=== PATIENT | female | born 1985 | race Caucasian/White ===

== ENCOUNTER → 2019-10-31 09:36 | Outpatient (BNVA) | payer MEDICAID, SELFPAY | PROVIDERS: Family Provider Nurse Practitioner Family; PCP Nurse Practitioner Family; Visit Provider Internal Medicine Rheumatology | DX: R76.8 Other specified abnormal immunological findings in serum (principal); M19.90 Unspecified osteoarthritis, unspecified site; Z79.899 Other long term (current) drug therapy; Z11.59 Encounter for screening for other viral diseases; Z11.1 Encounter for screening for respiratory tuberculosis; Z72.89 Other problems related to lifestyle; Z79.1 Long term (current) use of non-steroidal anti-inflammatories (NSAID) | CPT/HCPCS: 36415; 80076; 82306; 82565; 84550; 85651; 86140; 86160; 86480; 86704; 86803; 86812; 87340; 99204 ==

== ENCOUNTER → 2019-10-31 10:30 | Outpatient (BNVA) | payer MEDICAID, SELFPAY | PROVIDERS: Family Provider Nurse Practitioner Family; PCP Nurse Practitioner Family; Visit Provider Internal Medicine Rheumatology | DX: R76.8 Other specified abnormal immunological findings in serum (principal); M19.90 Unspecified osteoarthritis, unspecified site; Z79.899 Other long term (current) drug therapy; Z11.59 Encounter for screening for other viral diseases | CPT/HCPCS: 85025 ==

== ENCOUNTER → 2020-01-02 09:44 | Outpatient (BNVA) | payer MEDICAID, SELFPAY | PROVIDERS: Family Provider Nurse Practitioner Family; PCP Nurse Practitioner Family; Visit Provider Internal Medicine Rheumatology | DX: R76.8 Other specified abnormal immunological findings in serum (principal); Z11.59 Encounter for screening for other viral diseases; Z79.899 Other long term (current) drug therapy | CPT/HCPCS: 80076; 81001; 82565; 82570; 84156; 85025; 85651; 86060; 86140; 86803 ==

== ENCOUNTER 2020-01-04 11:27 | Outpatient (CLI) | payer MEDICAID, SELFPAY ==
--- NOTE | 2020-01-04 11:50 | XR_ITS ---
WS: [id number] XR foot RT min 3V* [id number] REASON FOR EXAM: inflammatory arthritis FINDINGS: Hallux valgus changes of the first metatarsal phalangeal junction. The phalanges, metatarsals, tarsals were normal. A small calcaneal spur is seen. XR/XR foot RT min 3V* [id number] IMPRESSION: Small calcaneal spur Mild hallux valgus changes
--- NOTE | 2020-01-04 11:50 | XR_ITS ---
WS: [id number] XR foot LT min 3V* [id number] REASON FOR EXAM: inflammatory arthritis FINDINGS: Metatarsal adductus changes of the first through fourth metatarsals. The phalanges, metatarsals and tarsals show no destructive changes no unusual swelling of the joints are seen. A calcaneal spur is seen. XR/XR foot LT min 3V* [id number] IMPRESSION: Metatarsal adductus changes. Calcaneal spur.
--- NOTE | 2020-01-04 11:50 | XR_ITS ---
WS: [id number] XR chest 2V* [id number] REASON FOR EXAM: inflammatory arthritis FINDINGS: The heart and mediastinal interfaces are normal. The peripheral lungs are clear there is no pneumonia, pleural effusion, pulmonary edema, pneumothorax , or fibrosing changes. The hilum and apices are normal. No osseous abnormalities. XR/XR chest 2V* [id number] IMPRESSION: Negative chest for active pathology.
--- NOTE | 2020-01-04 11:50 | XR_ITS ---
WS: [id number] XR hand RT min 3V* [id number] REASON FOR EXAM: inflammatory arthritis FINDINGS: No unusual soft tissue swelling. The phalanges, metacarpals, carpals are normal. No lytic changes are seen throughout the bony structu res. XR/XR hand RT min 3V* [id number] IMPRESSION: Negative right hand
--- NOTE | 2020-01-04 11:50 | XR_ITS ---
WS: [id number] XR hand LT min 3V* [id number] REASON FOR EXAM: inflammatory arthritis FINDINGS: The phalanges, metacarpals, and carpals are normal. There does appear to be soft tissue swe lling of the hand. There is no swelling or destructive changes in the joint spaces. XR/XR hand LT min 3V* [id number] IMPRESSION: Soft tissue swelling of the hand No destructive changes
== END 2020-01-04 11:28 | disposition home or self-care (01) ==
LOC: RAD 11:30
PROVIDERS: PCP Nurse Practitioner Family; Visit Provider Internal Medicine Rheumatology
DX: M19.90 Unspecified osteoarthritis, unspecified site (principal); M77.31 Calcaneal spur, right foot; M20.11 Hallux valgus (acquired), right foot; M77.32 Calcaneal spur, left foot
CPT/HCPCS: 71046; 73130; 73630

== ENCOUNTER → 2020-03-12 15:03 | Outpatient (BNVA) | payer MEDICAID, SELFPAY | PROVIDERS: PCP Nurse Practitioner Family; Visit Provider Internal Medicine Rheumatology | DX: M35.9 Systemic involvement of connective tissue, unspecified (principal); M19.90 Unspecified osteoarthritis, unspecified site; R76.8 Other specified abnormal immunological findings in serum; G56.20 Lesion of ulnar nerve, unspecified upper limb; F17.210 Nicotine dependence, cigarettes, uncomplicated; Z79.1 Long term (current) use of non-steroidal anti-inflammatories (NSAID); Z79.899 Other long term (current) drug therapy | CPT/HCPCS: 99214 ==

== ENCOUNTER → 2020-05-20 09:21 | Outpatient (BNVA) | payer MEDICAID, SELFPAY | PROVIDERS: PCP Nurse Practitioner Family; Visit Provider Internal Medicine Rheumatology | DX: Z79.899 Other long term (current) drug therapy (principal) | CPT/HCPCS: 80076; 82565; 85025; 85651; 86140 ==

== ENCOUNTER → 2020-06-19 09:24 | Outpatient (BNVA) | payer MEDICAID, SELFPAY | PROVIDERS: PCP Nurse Practitioner Family; Visit Provider Internal Medicine Rheumatology | DX: M19.90 Unspecified osteoarthritis, unspecified site (principal); R76.8 Other specified abnormal immunological findings in serum; M35.9 Systemic involvement of connective tissue, unspecified; G56.20 Lesion of ulnar nerve, unspecified upper limb; F17.210 Nicotine dependence, cigarettes, uncomplicated; Z79.899 Other long term (current) drug therapy | CPT/HCPCS: 99214; 99442 ==

== ENCOUNTER → 2020-09-23 00:01 | Outpatient (BNVA) | payer MEDICAID, SELFPAY | PROVIDERS: PCP Nurse Practitioner Family; Visit Provider Obstetrics & Gynecology | DX: B37.3 Candidiasis of vulva and vagina (principal); R30.0 Dysuria; L29.2 Pruritus vulvae | CPT/HCPCS: 81003; 87077; 87086; 87184 ==

== ENCOUNTER → 2020-10-08 15:28 | Outpatient (BNVA) | payer MEDICAID, SELFPAY | PROVIDERS: PCP Nurse Practitioner Family; Visit Provider Obstetrics & Gynecology | DX: L29.2 Pruritus vulvae (principal) | CPT/HCPCS: 88305 ==

== ENCOUNTER → 2020-12-16 10:56 | Outpatient (BNVA) | payer MEDICAID, SELFPAY | PROVIDERS: PCP Nurse Practitioner Family; Referring Provider Nurse Practitioner Family; Visit Provider Nurse Practitioner Family | DX: N32.81 Overactive bladder (principal); N39.0 Urinary tract infection, site not specified | CPT/HCPCS: 81003; 87086 ==

== ENCOUNTER → 2021-01-08 09:21 | Outpatient (BNVA) | payer MEDICAID, SELFPAY | PROVIDERS: PCP Nurse Practitioner Family; Visit Provider Internal Medicine Rheumatology | DX: M19.90 Unspecified osteoarthritis, unspecified site (principal); Z79.899 Other long term (current) drug therapy | CPT/HCPCS: 36415; 80076; 82565; 85025; 86140 ==

== ENCOUNTER → 2021-05-29 14:34 | Outpatient (BNVA) | payer MEDICAID, SELFPAY | PROVIDERS: PCP Nurse Practitioner Family; Visit Provider Nurse Practitioner Family | DX: N39.0 Urinary tract infection, site not specified (principal) | CPT/HCPCS: 81003 ==

== ENCOUNTER → 2021-10-22 14:35 | Outpatient (BNVA) | payer MEDICAID, SELFPAY | PROVIDERS: PCP Nurse Practitioner Family; Visit Provider Nurse Practitioner Family | DX: N39.0 Urinary tract infection, site not specified (principal); N39.41 Urge incontinence | CPT/HCPCS: 81003 ==

== ENCOUNTER → 2021-11-05 09:53 | Outpatient (BNVA) | payer MEDICAID, SELFPAY | PROVIDERS: PCP Nurse Practitioner Family; Visit Provider Internal Medicine Rheumatology | DX: M19.90 Unspecified osteoarthritis, unspecified site (principal); Z79.899 Other long term (current) drug therapy | CPT/HCPCS: 80076; 82565; 85025; 86140 ==

== ENCOUNTER → 2021-11-26 14:12 | Outpatient (BNVA) | payer MEDICAID, SELFPAY | PROVIDERS: PCP Nurse Practitioner Family; Visit Provider Internal Medicine Rheumatology | DX: R76.8 Other specified abnormal immunological findings in serum (principal); G56.23 Lesion of ulnar nerve, bilateral upper limbs; Z79.1 Long term (current) use of non-steroidal anti-inflammatories (NSAID); M19.90 Unspecified osteoarthritis, unspecified site; M35.9 Systemic involvement of connective tissue, unspecified; Z79.899 Other long term (current) drug therapy | CPT/HCPCS: 99214 ==

== ENCOUNTER 2021-12-25 10:51 | Emergency (ER) | payer MEDICAID, SELFPAY ==
[2021-12-25 10:54] VITALS: BP 98/66; PULSE 75; RESP 16; TEMP 36.4; O2SAT 100; BMI 39.3
[2021-12-25 11:02] VITALS: BP 98/66; PULSE 82; RESP 16; O2SAT 99
--- NOTE | 2021-12-25 11:21 | ED_ITS ---
HPI - Abdominal Pain General: Chief Complaint: Abdominal Pain Stated Complaint: vomiting blood Time Seen by Provider: 12/25/21 10:58 History of Present Illness: Patient comes in with vomiting and diarrhea. States she started vomiting this morning and shortly after the vomiting she st arted having some diarrhea. States that after 2 or 3 episodes of vomiting she saw small flecks of blood. Denies abdominal pain, fever. But does endorse some chills. Associated Symptoms: Reports diarrhea, nausea and vomiting; Denies dysuria and fever(s) Review of Systems Const: Denies: fever(s) or body aches Eyes: Denies: change in vision or blurry vision ENMT: Denies: throat pain or odynophagia Card: Denies: chest pain or palpitations Resp: Denies: dyspnea or productive cough GI: Reports: nausea, vomiting and diarrhea; Denies: abdominal pain : Denies: flank pain or dysuria Musc: Denies: neck pain or back pain Skin/Breast: Denies: rash or pruritus Neuro: Denies: headache(s) or numbness in extremities Psych: Denies: anxiety or change in appetite Endo: Denies: polyuria or excessive sweating PFSH ED 2 PFSH: Medical History (Updated 12/25/21 @ 12:55 by Yamil Shelley MD) Anxiety and depression Has had symptoms on and off since 2010 however has been on medication since 2018 being managed by her primary care provider. She does not have a psychiatrist or therapist Asthma Diagnosed in 2016 and is controlled with medication use managed by her primary care provider. She does not see a accident examiner GERD (gastroesophageal reflux disease) 19 but does not know results. Inflammatory arthritis No pertinent past medical history Denies diabetes, seizures, hypertension, DVT/PE PMD: Christin Dorsey, [facility] Overactive bladder Being managed on medications by her primary care provider Recurrent UTI Urgency incontinence Surgical History H/O ovarian cystectomy 2004---laparoscopic procedure performed by Dr. 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 History of tubal ligation 2009-laparoscopic interval sterilization Family History Father Hyperlipidemia Hypertension Mother Hyperlipidemia Hypertension Social History Smoking and tobacco status: never smoked Alcohol intake: never Marital status: Current occupational status: unemployed History of recent travel: No Physical Exam Const: COMMON NORMALS: no acute distress, patient oriented x3, healthy appearing and alert HENMT: COMMON NORMALS: normocephalic and atraumatic HEAD & SCALP: normocephalic and atraumatic Eye: COMMON NORMALS: Equal, round and reactive pupils present and EOMs intact bilaterally PUPIL: Yes Equal, round and reactive pupils present Neck/C-Spine: COMMON NORMALS: full ROM and supple Resp: COMMON NORMALS: normal respiratory effort, No retractions and No use of accessory muscles Cardio: COMMON NORMALS: regular rate and regular rhythm RATE: regular rate RHYTHM: regular rhythm GI: COMMON NORMALS: Normal to inspection, nondistended, normoactive bowel sounds present, Soft to palpation and non-tender PALPATION: Yes Soft to palpation Back/Pelvis: COMMON NORMALS: thoracic and lumbar spine normal to inspection and no thoracic nor lumbar tenderness Extremity: COMMON NORMALS: normal to inspection and full ROM Neuro: COMMON NORMALS: patient oriented x3 SENSORIUM/ORIENTATION: Yes alert Psych: COMMON NORMALS: mental status grossly normal and cooperative Skin: COMMON NORMALS: no rashes or lesions noted and no wounds GENERAL SKIN EXAM: no rashes or lesions noted Course Vital Signs: Vital signs: Vital Signs Temperature 97.6 F 12/25/21 10:54 Pulse Rate 82 12/25/21 11:02 Respiratory Rate 16 12/25/21 11:02 Blood Pressure 98/66 12/25/21 11:02 Pulse Oximetry 99 12/25/21 11:02 MDM - Abdominal Pain Medical Decision Making Patient comes in with vomiting and diarrhea. States she started vomiting this morning and shortly after the vomiting she started having some diarrhea. States that after 2 or 3 episodes of vomiting she saw small flecks of blood. Denies abdominal pain, fever. But does endorse some chills. On physical exam her abdomen is soft nontender. Will check labs, give IV fluids, treat nausea with IV Zofran, and reassess. On reassessment I talked to the patient about the test results. We will continue nausea medication, and discharge precautions return for worsening or changing symptoms. Lab Data : 12/25/21 11:32 12/25/21 11:32 Labs/Radiology: Laboratory Results WBC 28.8 10^3/uL (4.0-10.0) H 12/25/21 11:32 RBC 5.40 10^6/uL (4.1-5.3) H 12/25/21 11:32 Hgb 13.5 g/dL (11.5-15.3) 12/25/21 11:32 Hct 44.3 % (37.0-47.0) 12/25/21 11:32 MCV 82.0 fl (81-99) 12/25/21 11:32 MCH 25.0 pg (28.0-34.0) L 12/25/21 11:32 MCHC 30.5 g/dL (30.0-36.0) 12/25/21 11:32 RDW 14.5 % (12.1-15.1) 12/25/21 11:32 Plt Count 478 10^3/cmm (130-400) H 12/25/21 11:32 MPV 10.2 fL (7.4-10.4) 12/25/21 11:32 Neut % (Auto) 85.8 % 12/25/21 11:32 Lymph % (Auto) 4.6 % 12/25/21 11:32 Banner % (Auto) 8.3 % 12/25/21 11:32 Eos % (Auto) 0.4 % 12/25/21 11:32 Baso % (Auto) 0.3 % 12/25/21 11:32 Neut # (Auto) 24.69 10^3/uL (1.8-7.7) H 12/25/21 11:32 Lymph # (Auto) 1.3 10^3/uL (0.8-4.8) 12/25/21 11:32 Banner # (Auto) 2.4 10^3/uL (0.2-0.9) H 12/25/21 11:32 Eos # (Auto) 0.1 10^3/uL (0.0-0.8) 12/25/21 11:32 Baso # (Auto) 0.1 10^3/uL (0.0-0.1) 12/25/21 11:32 Nucleated RBC % (auto) 0 % 12/25/21 11:32 Nucleated RBCs # 0.0 /100WBC 12/25/21 11:32 Sodium 139 mmol/L (136-145) 12/25/21 11:32 Potassium 3.9 mmol/L (3.5-5.1) 12/25/21 11:32 Chloride 102 mmol/L (98-107) 12/25/21 11:32 Carbon Dioxide 23 mmol/L (22-29) 12/25/21 11:32 Anion Gap 17.9 (5-19) 12/25/21 11:32 BUN 10 mg/dL (6-20) 12/25/21 11:32 Creatinine 0.9 mg/dL (0.5-0.9) 12/25/21 11:32 GFR Calculation 70.5 mL/min (90-130) L 12/25/21 11:32 Glucose 158 mg/dL (65-115) H 12/25/21 11:32 Calculated Osmolality 290 mOsm/kg (285-295) 12/25/21 11:32 Calcium 9.7 mg/dL (8.5-10.5) 12/25/21 11:32 Total Bilirubin 0.3 mg/dL (0.15-1.2) 12/25/21 11:32 AST 18 U/L (0-32) 12/25/21 11:32 ALT 17 U/L (0-33) 12/25/21 11:32 Alkaline Phosphatase 84 IU/L (35-105) 12/25/21 11:32 Total Protein 8.8 g/dL (6.6-8.7) H 12/25/21 11:32 Albumin 5.1 g/dL (3.5-5.2) 12/25/21 11:32 Globulin 3.7 g/dL (1.3-4.6) 12/25/21 11:32 Lipase 23 U/L (13-60) 12/25/21 11:32 Discharge Plan Discharge Patient Disposition: Home Clinical Impression: Nausea, vomiting and diarrhea Condition: Stable Prescriptions: New ondansetron 4 mg tablet,disintegrating 4 mg PO Q8H PRN (Reason: nausea and vomiting) 5 Days Qty: 20 0RF No Action cetirizine [Zyrtec] 10 mg tablet 10 mg PO DAILY 0RF fluticasone propionate [Flonase Allergy Relief] 50 mcg/actuation spray,suspension 2 spray INTRANASAL DAILY PRN (Reason: Allergic Symptoms) 0RF pantoprazole 40 mg tablet,delayed release (DR/EC) 40 mg PO DAILY 0RF fluoxetine 20 mg capsule 40 mg PO DAILY 0RF oxybutynin chloride 5 mg tablet 15 mg PO DAILY 0RF montelukast [Singulair] 10 mg tablet 10 mg PO DAILY 0RF buspirone 5 mg tablet 5 mg PO TID 0RF albuterol sulfate [Proventil HFA] 90 mcg/actuation HFA aerosol inhaler 2 puff inhalation Q6H PRN (Reason: Shortness Of Breath) 0RF gabapentin 300 mg capsule 300 mg PO TID Qty: 90 3RF hydroxychloroquine 200 mg tablet 200 mg PO BID Qty: 60 3RF prednisone 5 mg tablet See Rx Instructions PO DAILY Qty: 90 1RF Rx Instructions: take 2 tabs daily for 10days then stay on 1.5 tabs daily PO daily; nitrofurantoin monohyd/m-cryst 100 mg capsule 100 mg PO BID 0RF bupropion HCl 150 mg Tablet Sustained-Release 12 Hr 150 mg PO BID 0RF Discharge Orders: Discharge ED (Routine); Ordered 12/25/21 Ordered By: Yamil Shelley Referrals: Christin Dosrey [Primary Care Provider] - Coding Level of Care Code ED Ed Case Manager for Chg Fwd Exam Comprehensive
[2021-12-25 11:40] LABS: Basophils # 0.1 10^3/uL (0.0-0.1); Basophils % 0.3 %; Eosinophils # 0.1 10^3/uL (0.0-0.8); Eosinophils % 0.4 %; Hematocrit 44.3 % (37.0-47.0); Hemoglobin 13.5 g/dL (11.5-15.3); Lymphocytes # 1.3 10^3/uL (0.8-4.8); Lymphocytes % 4.6 %; Mean Corpuscular HGB Conc 30.5 g/dL (30.0-36.0); Mean Platelet Volume 10.2 fL (7.4-10.4); Monocytes # 2.4 10^3/uL (0.2-0.9); Monocytes % 8.3 %; Neutrophils # 24.69 10^3/uL (1.8-7.7); Neutrophils % 85.8 %; Nucleated Red Blood Cells % 0 %; Platelet Count 478 10^3/cmm (130-400); Red Cell Distribution Width 14.5 % (12.1-15.1); White Blood Count 28.8 10^3/uL (4.0-10.0)
[2021-12-25] MEDS: sodium chloride 0.9% 1,000 ML 999 ML IV (11:41)
[2021-12-25] MEDS: ondansetron 2 mg/ML SDV 2 mL 4 MG IVP (11:44)
[2021-12-25 12:12] LABS: Alanine Aminotransferase 17 U/L (0-33); Albumin Level 5.1 g/dL (3.5-5.2); Alkaline Phosphatase 84 IU/L (35-105); Aspartate Amino Transferase 18 U/L (0-32); Blood Urea Nitrogen 10 mg/dL (6-20); Calcium 9.7 mg/dL (8.5-10.5); Carbon Dioxide 23 mmol/L (22-29); Chloride 102 mmol/L (98-107); Globulin 3.7 g/dL (1.3-4.6); Glomerular Filtration Rate 70.5 mL/min (90-130); Glucose 158 mg/dL (65-115); Lipase 23 U/L (13-60); Osmolality Calculated 290 mOsm/kg (285-295); Sodium 139 mmol/L (136-145); Total Bilirubin 0.3 mg/dL (0.15-1.2); Total Protein 8.8 g/dL (6.6-8.7)
[2021-12-25 12:15] LABS: Anion Gap 17.9 (5-19); Potassium 3.9 mmol/L (3.5-5.1)
[2021-12-25 13:12] VITALS: BP 98/66; PULSE 82; RESP 16; O2SAT 99
== END 2021-12-25 13:14 | disposition home or self-care (01) ==
PROVIDERS: Emergency Provider Emergency Medicine; PCP Nurse Practitioner Family
DX: R11.2 Nausea with vomiting, unspecified (principal); R19.7 Diarrhea, unspecified
CPT/HCPCS: 80053; 83690; 85025; 96361; 96374; 99283; J2405; J7030

== ENCOUNTER 2022-02-04 03:53 | Emergency (ER) | payer MEDICAID, SELFPAY ==
[2022-02-04 03:54] VITALS: BP 129/79; PULSE 80; RESP 16; TEMP 36.5; O2SAT 98; BMI 37.1
[2022-02-04] MEDS: sodium chloride 0.9% 1,000 ML 999 ML IV (04:10)
[2022-02-04] MEDS: ondansetron 2 mg/ML SDV 2 mL 4 MG IVP (04:15)
--- NOTE | 2022-02-04 04:21 | W.ED.NAVMDI ---
HPI - Nausea/Vomiting/Diarrhea General: Chief complaint: Nausea/Vomiting/Diarrhea Stated complaint: N/V Time Seen by Provider: 02/04/22 03:53 Source: patient and EMS Mode of arrival: EMS Limitations: no limitations History of Present Illness: 36-year-old female who states that she woke up roughly 2 hours ago with vomiting along with some diarrhea. States had multiple episodes of vomiting she has had some slight abdominal cramping denies any abdominal pain patient denies any fever she denies any worsening improving factors. Associated nausea: Yes Associated symtoms: Reports nausea; Denies chest pain, dysuria or headache(s) Review of Systems Const: Denies: fever(s), chills, body aches or change in appetite Eyes: Denies: blurry vision or eye discomfort ENMT: Denies: throat pain or dental pain Card: Denies: chest pain Resp: Denies: dyspnea GI: Reports: nausea, vomiting and diarrhea : Denies: dysuria Musc: Denies: neck pain or back pain Skin/Breast: Denies: rash Neuro: Denies: headache(s) Psych: Denies: depression Elton/Lymph: Denies: easy bruising All/Imm: Denies: urticaria PFSH ED PFSH: Medical History (Updated 02/04/22 @ 05:03 by Ela Hernandez MD) Anxiety and depression Has had symptoms on and off since 2010 however has been on medication since 2018 being managed by her primary care provider. She does not have a psychiatrist or therapist Asthma Diagnosed in 2016 and is controlled with medication use managed by her primary care provider. She does not see a executive director of marketing GERD (gastroesophageal reflux disease) 19 but does not know results. Inflammatory arthritis No pertinent past medical history Denies diabetes, seizures, hypertension, DVT/PE PMD: Christin Dorsey, [facility] Overactive bladder Being managed on medications by her primary care provider Recurrent UTI Urgency incontinence Surgical History H/O ovarian cystectomy 2004---laparoscopic procedure performed by Dr. Mcfarland at 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 History of tubal ligation 2009-laparoscopic interval sterilization Family History Father Hyperlipidemia Hypertension Mother Hyperlipidemia Hypertension Social History Smoking and tobacco status: never smoked Alcohol intake: never Marital status: Current occupational status: unemployed History of recent travel: No Physical Exam Const: COMMON NORMALS: no acute distress, patient oriented x3 and healthy appearing HENMT: COMMON NORMALS: normocephalic and atraumatic HEAD & SCALP: normocephalic and atraumatic Eye: COMMON NORMALS: Equal, round and reactive pupils present and EOMs intact bilaterally PUPIL: Yes Equal, round and reactive pupils present Neck/C-Spine: COMMON NORMALS: full ROM and supple Chest: COMMONS NORMALS: normal inspection of the chest and normal palpation of entire chest wall Resp: COMMON NORMALS: normal respiratory effort, No retractions, No use of accessory muscles and clear to auscultation bilaterally AUSCULTATION: clear to auscultation bilaterally Cardio: COMMON NORMALS: regular rate, regular rhythm and No murmurs present (Cardio) RATE: regular rate RHYTHM: regular rhythm GI: COMMON NORMALS: Normal to inspection, nondistended, normoactive bowel sounds present, Soft to palpation, non-tender and no masses PALPATION: Yes Soft to palpation Extremity: COMMON NORMALS: normal to inspection and full ROM Neuro: COMMON NORMALS: patient oriented x3, moves all extremities and no focal motor deficits Psych: COMMON NORMALS: mental status grossly normal, Normal thought process present and cooperative THOUGHT PROCESS: Normal thought process present Skin: COMMON NORMALS: no rashes or lesions noted and no wounds GENERAL SKIN EXAM: no rashes or lesions noted Course Vital Signs: Vital signs: Vital Signs Temperature 97.7 F 02/04/22 03:54 Pulse Rate 72 02/04/22 04:59 Respiratory Rate 16 02/04/22 04:59 Blood Pressure 121/61 02/04/22 04:59 Pulse Oximetry 97 02/04/22 04:59 MDM - Nausea/Vomiting/Diarrhea Medical Decision Making Patient presents here with vomiting along with diarrhea that is likely viral in nature. Patient's blood work here along with abdominal exam is benign patient is stable for discharge we will prescribe Zofran she is to follow-up with PCP and return if worsening. Lab Data : 02/04/22 04:15 02/04/22 04:15 Laboratory Results WBC 12.6 10^3/uL (4.0-10.0) H 02/04/22 04:15 RBC 4.26 10^6/uL (4.1-5.3) 02/04/22 04:15 Hgb 10.2 g/dL (11.5-15.3) L 02/04/22 04:15 Hct 33.1 % (37.0-47.0) L 02/04/22 04:15 MCV 77.7 fl (81-99) L 02/04/22 04:15 MCH 23.9 pg (28.0-34.0) L 02/04/22 04:15 MCHC 30.8 g/dL (30.0-36.0) 02/04/22 04:15 RDW 15.2 % (12.1-15.1) H 02/04/22 04:15 Plt Count 354 10^3/cmm (130-400) 02/04/22 04:15 MPV 10.9 fL (7.4-10.4) H 02/04/22 04:15 Neut % (Auto) 72.3 % 02/04/22 04:15 Lymph % (Auto) 18.3 % 02/04/22 04:15 Kendall % (Auto) 7.8 % 02/04/22 04:15 Eos % (Auto) 0.7 % 02/04/22 04:15 Baso % (Auto) 0.5 % 02/04/22 04:15 Neut # (Auto) 9.13 10^3/uL (1.8-7.7) H 02/04/22 04:15 Lymph # (Auto) 2.3 10^3/uL (0.8-4.8) 02/04/22 04:15 Kendall # (Auto) 1.0 10^3/uL (0.2-0.9) H 02/04/22 04:15 Eos # (Auto) 0.1 10^3/uL (0.0-0.8) 02/04/22 04:15 Baso # (Auto) 0.1 10^3/uL (0.0-0.1) 02/04/22 04:15 Nucleated RBC % (auto) 0 % 02/04/22 04:15 Nucleated RBCs # 0.0 /100WBC 02/04/22 04:15 Hypochromasia 3+ H 02/04/22 04:15 Sodium 138 mmol/L (136-145) 02/04/22 04:15 Potassium 4.3 mmol/L (3.5-5.1) 02/04/22 04:15 Chloride 102 mmol/L (98-107) 02/04/22 04:15 Carbon Dioxide 26 mmol/L (22-29) 02/04/22 04:15 Anion Gap 14.3 (5-19) 02/04/22 04:15 BUN 9 mg/dL (6-20) 02/04/22 04:15 Creatinine 0.8 mg/dL (0.5-0.9) 02/04/22 04:15 GFR Calculation 80.7 mL/min (90-130) L 02/04/22 04:15 Glucose 129 mg/dL (65-115) H 02/04/22 04:15 Calculated Osmolality 286 mOsm/kg (285-295) 02/04/22 04:15 Calcium 8.9 mg/dL (8.5-10.5) 02/04/22 04:15 Total Bilirubin 0.2 mg/dL (0.15-1.2) 02/04/22 04:15 AST 12 U/L (0-32) 02/04/22 04:15 ALT 16 U/L (0-33) 02/04/22 04:15 Alkaline Phosphatase 78 IU/L (35-105) 02/04/22 04:15 Total Protein 6.5 g/dL (6.6-8.7) L 02/04/22 04:15 Albumin 4.3 g/dL (3.5-5.2) 02/04/22 04:15 Globulin 2.2 g/dL (1.3-4.6) 02/04/22 04:15 Lipase 22 U/L (13-60) 02/04/22 04:15 HCG, Qual Negative (Negative) 02/04/22 04:15 Urine Color Yellow (Yellow) 02/04/22 04:15 Urine Appearance Cloudy (CLEAR) 02/04/22 04:15 Urine pH 5 (5-7) 02/04/22 04:15 Ur Specific [place] 1.030 (1.005-1.030) 02/04/22 04:15 Urine Protein Neg (Negative) 02/04/22 04:15 Urine Glucose (UA) Norm (Normal) 02/04/22 04:15 Urine Ketones Negative (Negative) 02/04/22 04:15 Urine Blood 2+ (Negative) H 02/04/22 04:15 Urine Nitrate Negative (Negative) 02/04/22 04:15 Urine Bilirubin Neg (Negative) 02/04/22 04:15 Urine Urobilinogen Norm mg/dL (Negative) 02/04/22 04:15 Ur Leukocyte Esterase Negative (Negative) 02/04/22 04:15 Urine RBC 5-10 /hpf (0-2) H 02/04/22 04:15 Urine WBC 0-4 /hpf (0-5) H 02/04/22 04:15 Ur Squamous Epith Cells 25-40 /hpf (0-5) H 02/04/22 04:15 Calcium Oxalate Crystal >100 /hpf H 02/04/22 04:15 Amorphous Sediment Not Reportable 02/04/22 04:15 Urine Bacteria 4+ /hpf (NONE) H 02/04/22 04:15 Urine Mucus 2+ /hpf 02/04/22 04:15 Discharge Plan Discharge Patient Disposition: Home Clinical Impression: Diarrhea Vomiting Qualifiers: Vomiting type: unspecified Nausea presence: with nausea Qualified Code(s): R11.2 - Nausea with vomiting, unspecified Condition: Stable Prescriptions: New ondansetron 4 mg tablet,disintegrating 4 mg PO Q6H PRN (Reason: nausea and vomiting) Qty: 14 0RF No Action cetirizine [Zyrtec] 10 mg tablet 10 mg PO DAILY 0RF fluticasone propionate [Flonase Allergy Relief] 50 mcg/actuation spray,suspension 2 spray INTRANASAL DAILY PRN (Reason: Allergic Symptoms) 0RF pantoprazole 40 mg tablet,delayed release (DR/EC) 40 mg PO DAILY 0RF fluoxetine 20 mg capsule 40 mg PO DAILY 0RF oxybutynin chloride 5 mg tablet 15 mg PO DAILY 0RF montelukast [Singulair] 10 mg tablet 10 mg PO DAILY 0RF buspirone 5 mg tablet 5 mg PO TID 0RF albuterol sulfate [Proventil HFA] 90 mcg/actuation HFA aerosol inhaler 2 puff inhalation Q6H PRN (Reason: Shortness Of Breath) 0RF gabapentin 300 mg capsule 300 mg PO TID Qty: 90 3RF hydroxychloroquine 200 mg tablet 200 mg PO BID Qty: 60 3RF prednisone 5 mg tablet See Rx Instructions PO DAILY Qty: 90 1RF Rx Instructions: take 2 tabs daily for 10days then stay on 1.5 tabs daily PO daily; nitrofurantoin monohyd/m-cryst 100 mg capsule 100 mg PO BID 0RF bupropion HCl 150 mg Tablet Sustained-Release 12 Hr 150 mg PO BID 0RF Discharge Orders: Discharge ED (Routine); Ordered 02/04/22 Ordered By: Ela Hernandez Referrals: Christin Dorsey [Primary Care Provider] - 1-3 days Discharge Diet: Advance as tolerated Discharge Activity: Resume usual activity Patient Instructions: Acute Nausea and Vomiting (ED) Coding Level of Care Code ED Skinner Pelts for Lisha F[place] Exam Comprehensive
[2022-02-04 04:32] LABS: Basophils # 0.1 10^3/uL (0.0-0.1); Basophils % 0.5 %; Eosinophils # 0.1 10^3/uL (0.0-0.8); Eosinophils % 0.7 %; Hematocrit 33.1 % (37.0-47.0); Hemoglobin 10.2 g/dL (11.5-15.3); Lymphocytes # 2.3 10^3/uL (0.8-4.8); Lymphocytes % 18.3 %; Mean Corpuscular HGB Conc 30.8 g/dL (30.0-36.0); Mean Corpuscular Hemoglobin 23.9 pg (28.0-34.0); Mean Corpuscular Volume 77.7 fl (81-99); Mean Platelet Volume 10.9 fL (7.4-10.4); Monocytes % 7.8 %; Neutrophils # 9.13 10^3/uL (1.8-7.7); Neutrophils % 72.3 %; Nucleated Red Blood Cells % 0 %; Platelet Count 354 10^3/cmm (130-400); Red Blood Count 4.26 10^6/uL (4.1-5.3); Red Cell Distribution Width 15.2 % (12.1-15.1); White Blood Count 12.6 10^3/uL (4.0-10.0)
[2022-02-04 04:40] LABS: HCG, Serum Qual Negative (Negative)
[2022-02-04 04:46] LABS: Alanine Aminotransferase 16 U/L (0-33); Albumin Level 4.3 g/dL (3.5-5.2); Alkaline Phosphatase 78 IU/L (35-105); Anion Gap 14.3 (5-19); Aspartate Amino Transferase 12 U/L (0-32); Blood Urea Nitrogen 9 mg/dL (6-20); Calcium 8.9 mg/dL (8.5-10.5); Carbon Dioxide 26 mmol/L (22-29); Chloride 102 mmol/L (98-107); Globulin 2.2 g/dL (1.3-4.6); Glomerular Filtration Rate 80.7 mL/min (90-130); Glucose 129 mg/dL (65-115); Lipase 22 U/L (13-60); Osmolality Calculated 286 mOsm/kg (285-295); Potassium 4.3 mmol/L (3.5-5.1); Sodium 138 mmol/L (136-145); Total Bilirubin 0.2 mg/dL (0.15-1.2); Total Protein 6.5 g/dL (6.6-8.7)
[2022-02-04 04:58] LABS: Add RBC Morph Yes; Add Urine Culture? No; Add Urine Microscopic? YES; Bacteria Urine 4+ /hpf; Bilirubin Urine Neg (Negative); Blood Urine 2+ (Negative); Calcium Oxalate Crystals Urine >100 /hpf; Glucose Urine UA Norm (Normal); Ketones Urine Negative (Negative); Leukocyte Esterase Urine Negative (Negative); Mucus Urine 2+ /hpf; Nitrate Urine Negative (Negative); Protein Urine Neg (Negative); Slide Review Slide Review Perform; Squamous Epithelial Cell Urine 25-40 /hpf (0-5); Urine Appearance Cloudy (CLEAR); Urine Color Yellow (Yellow); Urobilinogen Urine Norm (Negative); WBC Urine 0-4 /hpf (0-5); pH Urine 5 (5-7)
[2022-02-04 04:59] VITALS: BP 121/61; PULSE 72; RESP 16; O2SAT 97
[2022-02-04 04:59] LABS: Hypochromasia 3+; RBC Morph Comp No
[2022-02-04 05:41] VITALS: BP 110/71; PULSE 79; RESP 16; O2SAT 97
== END 2022-02-04 05:43 | disposition home or self-care (01) ==
PROVIDERS: Emergency Provider Emergency Medicine; PCP Nurse Practitioner Family
DX: R11.2 Nausea with vomiting, unspecified (principal)
CPT/HCPCS: 80053; 81001; 83690; 84703; 85025; 96361; 96374; 99284; J2405; J7030

== ENCOUNTER → 2022-03-17 13:34 | Outpatient (BNVA) | payer MEDICAID, SELFPAY | PROVIDERS: PCP Nurse Practitioner Family; Visit Provider Internal Medicine Rheumatology | DX: M19.90 Unspecified osteoarthritis, unspecified site (principal); R76.8 Other specified abnormal immunological findings in serum; M35.9 Systemic involvement of connective tissue, unspecified; Z79.899 Other long term (current) drug therapy; Z71.85 Encounter for immunization safety counseling; G56.23 Lesion of ulnar nerve, bilateral upper limbs; Z79.1 Long term (current) use of non-steroidal anti-inflammatories (NSAID); M77.11 Lateral epicondylitis, right elbow; M77.12 Lateral epicondylitis, left elbow; M77.01 Medial epicondylitis, right elbow; M77.02 Medial epicondylitis, left elbow | CPT/HCPCS: 99214 ==

== ENCOUNTER → 2022-07-31 09:30 | Outpatient (BNVA) | payer MEDICAID, SELFPAY | PROVIDERS: PCP Nurse Practitioner Family; Visit Provider Internal Medicine Rheumatology | DX: M35.9 Systemic involvement of connective tissue, unspecified (principal); Z79.899 Other long term (current) drug therapy | CPT/HCPCS: 80076; 82565; 85025; 86140 ==

== ENCOUNTER 2023-05-24 10:52 | Outpatient (CLI) | payer MEDICAID, SELFPAY ==
[2023-05-24 12:03] LABS: Basophils % 0.6 %; Eosinophils # 0.1 10^3/uL (0.0-0.8); Eosinophils % 1.3 %; Hematocrit 38.9 % (36-47); Lymphocytes # 1.2 10^3/uL (0.8-4.8); Lymphocytes % 19.1 %; Mean Corpuscular HGB Conc 31.4 g/dL (30-55); Mean Corpuscular Volume 89.4 fl (85-98); Mean Platelet Volume 9.6 fL (7.4-10.4); Monocytes # 0.6 10^3/uL (0.2-0.9); Monocytes % 9.4 %; Neutrophils % 69.3 %; Nucleated Red Blood Cells % 0 %; Platelet Count 267 10^3/cmm (157-399); Red Blood Count 4.35 10^6/uL (3.85-5.65); Red Cell Distribution Width 15.3 % (12.1-15.1); White Blood Count 6.35 10^3/uL (3.29-11.43)
[2023-05-24 12:32] LABS: Alanine Aminotransferase 19 U/L (0-33); Albumin Level 4.3 g/dL (3.5-5.2); Alkaline Phosphatase 64 U/L (35-105); Aspartate Amino Transferase 20 U/L (0-32); Globulin 2.1 g/dL (1.3-4.6); Glomerular Filtration Rate 93.6 mL/min (90-130); Total Bilirubin 0.4 mg/dL (0.15-1.2); Total Protein 6.4 g/dL (6.6-8.7)
== END 2023-05-24 10:53 | disposition home or self-care (01) ==
LOC: LAB 10:55
PROVIDERS: PCP Nurse Practitioner Family; Visit Provider Internal Medicine Rheumatology
DX: M35.9 Systemic involvement of connective tissue, unspecified (principal); Z79.899 Other long term (current) drug therapy
CPT/HCPCS: 36415; 80076; 82565; 85025; 86140

== ENCOUNTER → 2023-09-02 16:35 | Outpatient (BNVA) | payer MEDICAID, SELFPAY | PROVIDERS: PCP Nurse Practitioner Family; Visit Provider Nurse Practitioner Women's Health | DX: R76.8 Other specified abnormal immunological findings in serum (principal) | CPT/HCPCS: 82670; 83001; 83002; 83036; 83520; 84439; 84443; 84481; 85025 ==

== ENCOUNTER → 2023-11-08 12:28 | Outpatient (BNVA) | payer MEDICAID, SELFPAY | PROVIDERS: PCP Nurse Practitioner Family; Visit Provider Nurse Practitioner Women's Health | DX: N92.0 Excessive and frequent menstruation with regular cycle (principal) | CPT/HCPCS: 76830 ==

== ENCOUNTER 2024-01-05 13:25 | Outpatient (CLI) | payer MEDICAID, SELFPAY ==
[2024-01-05 13:53] LABS: Basophils # 0.1 10^3/uL (0.0-0.1); Basophils % 1.2 %; Eosinophils # 0.2 10^3/uL (0.0-0.8); Eosinophils % 3.1 %; Hematocrit 35.2 % (36-47); Lymphocytes # 0.9 10^3/uL (0.8-4.8); Lymphocytes % 15.1 %; Mean Corpuscular Volume 79.3 fl (85-98); Mean Platelet Volume 10.1 fL (7.4-10.4); Monocytes # 0.2 10^3/uL (0.2-0.9); Monocytes % 3.8 %; Neutrophils # 4.39 10^3/uL (1.8-7.7); Neutrophils % 76.5 %; Nucleated Red Blood Cells % 0 %; Platelet Count 346 10^3/cmm (157-399); Red Blood Count 4.44 10^6/uL (3.85-5.65); Red Cell Distribution Width 16.2 % (12.1-15.1); White Blood Count 5.75 10^3/uL (3.29-11.43)
[2024-01-05 14:33] LABS: Alanine Aminotransferase 13 U/L (0-33); Albumin Level 4.3 g/dL (3.5-5.2); Alkaline Phosphatase 78 U/L (35-105); Aspartate Amino Transferase 18 U/L (0-32); Globulin 2.2 g/dL (1.3-4.6); Glomerular Filtration Rate 93.2 mL/min (90-130); Total Bilirubin 0.2 mg/dL (0.15-1.2); Total Protein 6.5 g/dL (6.6-8.7)
== END 2024-01-05 13:26 | disposition home or self-care (01) ==
LOC: LAB 13:27
PROVIDERS: PCP Nurse Practitioner Family; Visit Provider Internal Medicine Rheumatology
DX: Z79.899 Other long term (current) drug therapy (principal); M35.9 Systemic involvement of connective tissue, unspecified
CPT/HCPCS: 36415; 80076; 82565; 82728; 83540; 83550; 85025; 86140

== ENCOUNTER 2024-05-17 13:37 | Outpatient (CLI) | payer MEDICAID, SELFPAY ==
[2024-05-17 14:29] LABS: Basophils # 0.1 10^3/uL (0.0-0.1); Eosinophils # 0.3 10^3/uL (0.0-0.8); Eosinophils % 4.2 %; Hematocrit 38.6 % (36-47); Lymphocytes # 2.3 10^3/uL (0.8-4.8); Lymphocytes % 30.6 %; Mean Corpuscular HGB Conc 31.9 g/dL (30-55); Mean Corpuscular Hemoglobin 30.7 pg (27-33); Mean Corpuscular Volume 96.3 fl (85-98); Mean Platelet Volume 10.1 fL (7.4-10.4); Monocytes # 0.6 10^3/uL (0.2-0.9); Monocytes % 7.6 %; Neutrophils # 4.15 10^3/uL (1.8-7.7); Neutrophils % 56.3 %; Nucleated Red Blood Cells % 0 %; Platelet Count 346 10^3/cmm (157-399); Red Blood Count 4.01 10^6/uL (3.85-5.65); Red Cell Distribution Width 13.3 % (12.1-15.1); White Blood Count 7.36 10^3/uL (3.29-11.43)
[2024-05-17 14:39] LABS: Alanine Aminotransferase 26 U/L (0-33); Albumin Level 4.5 g/dL (3.5-5.2); Alkaline Phosphatase 79 U/L (35-105); Aspartate Amino Transferase 20 U/L (0-32); Glomerular Filtration Rate 93.2 mL/min (90-130); Total Bilirubin 0.2 mg/dL (0.15-1.2); Total Protein 6.5 g/dL (6.6-8.7)
== END 2024-05-17 13:38 | disposition home or self-care (01) ==
PROVIDERS: PCP Nurse Practitioner Family; Visit Provider Internal Medicine Rheumatology
DX: Z79.899 Other long term (current) drug therapy (principal); M35.9 Systemic involvement of connective tissue, unspecified; M51.369 Other intervertebral disc degeneration, lumbar region without mention of lumbar back pain or lower extremity pain; M51.370 Other intervertebral disc degeneration, lumbosacral region with discogenic back pain only; Z90.49 Acquired absence of other specified parts of digestive tract
CPT/HCPCS: 36415; 72100; 80076; 82565; 85025

== ENCOUNTER → 2024-10-30 12:40 | Outpatient (BNVA) | payer MEDICAID, SELFPAY | PROVIDERS: PCP Nurse Practitioner Family; Visit Provider Internal Medicine Rheumatology | DX: Z79.899 Other long term (current) drug therapy (principal) | CPT/HCPCS: 36415; 80076; 82565; 85025; 85651; 86140 ==

== ENCOUNTER 2025-03-01 10:16 | Outpatient (CLI) | payer OTHER, MEDICAID, SELFPAY ==
[2025-03-01 11:03] LABS: Hematocrit 34.0 % (36-47); Hemoglobin 11.40 g/dL (11.27-16.99); Mean Corpuscular HGB Conc 33.5 g/dL (30-55); Mean Corpuscular Hemoglobin 31.2 pg (27-33); Mean Corpuscular Volume 93.2 fl (85-98); Nucleated Red Blood Cells % 0 %; Platelet Count 276 10^3/cmm (157-399); Red Blood Count 3.65 10^6/uL (3.85-5.65); White Blood Count 5.04 10^3/uL (3.29-11.43)
[2025-03-01 11:26] LABS: Alanine Aminotransferase 14 U/L (0-33); Albumin Level 4.0 g/dL (3.5-5.2); Alkaline Phosphatase 74 U/L (35-105); Aspartate Amino Transferase 21 U/L (0-32); Globulin 2.1 g/dL (1.3-4.6); Total Protein 6.1 g/dL (6.6-8.7)
== END 2025-03-01 10:17 | disposition home or self-care (01) ==
LOC: LAB 10:19
PROVIDERS: PCP Nurse Practitioner Family; Visit Provider Internal Medicine Rheumatology
DX: Z79.899 Other long term (current) drug therapy (principal)
CPT/HCPCS: 36415; 80076; 82565; 85025; 85651; 86140

== ENCOUNTER → 2025-04-18 09:23 | Outpatient (BNVA) | payer OTHER, MEDICAID, SELFPAY | PROVIDERS: PCP Nurse Practitioner Family; Visit Provider Obstetrics & Gynecology | DX: N32.81 Overactive bladder (principal) | CPT/HCPCS: 83036; 84315; 84443; 87086 ==

== ENCOUNTER 2025-05-15 13:48 | Outpatient (CLI) | payer MEDICAID, OTHER, SELFPAY ==
[2025-05-15 16:03] LABS: Hematocrit 39.4 % (36-47); Hemoglobin 12.80 g/dL (11.27-16.99); Mean Corpuscular HGB Conc 32.5 g/dL (30-55); Mean Corpuscular Hemoglobin 29.2 pg (27-33); Mean Corpuscular Volume 89.7 fl (85-98); Nucleated Red Blood Cells % 0 %; Platelet Count 298 10^3/cmm (157-399); Red Blood Count 4.39 10^6/uL (3.85-5.65); White Blood Count 8.05 10^3/uL (3.29-11.43)
[2025-05-15 17:41] LABS: Alanine Aminotransferase 16 U/L (0-33); Albumin Level 4.5 g/dL (3.5-5.2); Alkaline Phosphatase 72 U/L (35-105); Aspartate Amino Transferase 16 U/L (0-32); Globulin 2.4 g/dL (1.3-4.6); Total Protein 6.9 g/dL (6.6-8.7)
== END 2025-05-15 13:49 | disposition home or self-care (01) ==
PROVIDERS: PCP Nurse Practitioner Family; Visit Provider Internal Medicine Rheumatology
DX: Z79.899 Other long term (current) drug therapy (principal)
CPT/HCPCS: 36415; 80076; 82565; 85025; 85651; 86140